=== PATIENT | female | born 1985 | race Caucasian/White ===

== ENCOUNTER 2016-11-06 13:00 | Inpatient (IN) | payer MEDICAID ==
--- NOTE | ~2016-11-06 | PA ---
Unit #: [id number] #: [id number] Patient: BONIFACIO ORTIZ [id number] [facility] [address] [place] [address] [id number] I MR#: [id number] NAME: BONIFACIO ORTIZ ROOM: P208 Age: 30 Sex: F Admission Date: 11/06/2016 : 1985 Date of Assessment: 11/07/2016 Attending Physician: Tito Zavala M.D. Admitting Physician: Tito Zavala M.D. Primary Care Physician: Primary Care Physician No PSYCHIATRIC ASSESSMENT IDENTIFYING INFORMATION The patient is a 30-year-old white female admitted with methamphetamine induced psychosis. INFORMANT(S) Patient. RELIABILITY Fair. CHIEF COMPLAINT None given. HISTORY OF PRESENT ILLNESS The patient is a 30-year-old white female admitted from [facility] in [place] with a methamphetamine induced psychosis. The patient reports that she has been hearing voices saying help me and was fearful that cars were melting on the bridge. The patient's father dropped her off at [facility] after the patient had tried to jump out of the car as a way to kill herself. The patient has been using in addition to methamphetamine heroin by means of intravenous administration. She has a history of one previous chemical dependence treatment on an outpatient basis. She denies current suicidal/homicidal ideation. She does report that she has been prescribed Effexor but her chart does not seem to confirm this. PAST PSYCHIATRIC HISTORY As above. FAMILY HISTORY Noncontributory. SOCIAL HISTORY The patient is presently homeless and unemployed. She reports she completed high school. She is not presently employed. MEDICAL HISTORY Noncontributory. MEDICATION HISTORY None. ALLERGIES Unit #: [id number] #: [id number] Patient: BONIFACIO ORTIZ None. MENTAL STATUS EXAM At this time, reveals the patient to be a well-developed, well-nourished white female appearing her stated age. She is in no apparent physical distress at the time of the examination. She is awake, alert, oriented in all spheres. Her mood is euthymic. Her affect congruent. Speech is generally relevant and coherent. There are no gross deficits in memory or cognition noted. Intelligence is judged to be in the average range based on fund of knowledge. The patient is cooperative throughout the interview. She is currently denying suicidal or homicidal ideation and at this point denies any psychotic symptoms. Her judgement and insight appear to be reasonably intact. ASSETS AND LIABILITIES Patient's assets to be assessed. Liabilities, ongoing substance use. ADMITTING DIAGNOSES 1. Methamphetamine use disorder with intoxication and delusions. 2. Psychotic disorder, unspecified. 3. Opioid use disorder. 4. Hepatitis C. PSYCHIATRIC PLAN/TREATMENT GOALS The patient remains hospitalized for safety and stabilization. We will watch for any signs of opioid withdrawal and the patient has been started p.r.n. Zydis for psychosis. Already her psychotic symptoms seemed to have cleared but were very much in evidence yesterday as the patient required multiple p.r.n.'s and seclusion and restraint. ESTIMATED LENGTH OF STAY Three to four days with follow up to take place through the auspices of community mental health resources in the [facility] [place]. Dictated by... Tito Zavala M.D. MAX/valentine TD: 11/07/2016 15:08 JOB #: [id number] PSYCHIATRIC ASSESSMENT Page 1 of 1 X Tito Zavala MD X PSYCHIATRIC ASSESSMENT
--- NOTE | ~2016-11-06 | HP ---
Unit #: [id number] #: [id number] Patient: BESSY ORTIZ [id number] [facility] [address] [place] [address] [id number] I MR#: [id number] NAME: BESSY ORTIZ ROOM: P208 Age: 30 Sex: F Admission Date: 11/06/2016 : 1985 Attending Physician: Tito Zavala M.D. Admitting Physician: Tito Zavala M.D. Primary Care Physician: Primary Care Physician No HISTORY AND PHYSICAL REVISED REPORT HISTORY OF PRESENT ILLNESS Bessy is a 30 year old admitted with drug induced psychosis. At the time of her initial admissions she was in no shape to answer questions appropriately nor did she consent to physical exam. Forty eight hours after her admission I was able to sit down speak with her and she did allow me to examine her. PAST MEDICAL HISTORY Nothing significant. PAST SURGICAL HISTORY Nothing reported. ALLERGIES No known drug allergies. SOCIAL HISTORY Smokes one pack per day. Denies alcohol. Admits to illicit substance abuse to include methamphetamine. FAMILY HISTORY Medically noncontributory. REVIEW OF SYSTEMS CONSTITUTIONAL: No fever or chills. HEENT: Denies any sore throat, ear pain or runny nose. CARDIOVASCULAR: Denies chest pain, irregular heart rhythm or palpitations. CHEST: Denies shortness of breath or cough. No hemoptysis. GASTROINTESTINAL: Denies nausea, vomiting, diarrhea or chronic constipation. ENDOCRINE: Denies history of increased thirst or urination. No recent significant weight loss or gain. GENITOURINARY: Denies dysuria, frequency, or hematuria. SKIN: Denies any rashes. HEMATOLOGIC: Denies history of increased bleeding or bruising. MUSCULOSKELETAL: Denies any hot, swollen joints. No generalized muscle pain. NEUROLOGIC: Denies problems with vision or speech. No frequent, severe headaches. No numbness, tingling or weakness in any extremities. Denies loss of bladder or bowel control. Unit #: [id number] #: [id number] Patient: BESSY ORTIZ CURRENT MEDICATIONS 1. Milk of Magnesia p.r.n. 2. Maalox p.r.n. 3. Tylenol p.r.n. 4. Zyprexa Zydis 10 mg q 8 hours p.r.n. 5. Nicotine patch 14 mg q day PHYSICAL EXAMINATION GENERAL: Alert, no apparent distress, in no apparent distress. VITAL SIGNS: Blood pressure 100/52, heart rate 80, respirations 16, temperature 98.6. WEIGHT: 130 pounds. HEIGHT: 5 foot 2 inches. SKIN: Warm and dry without rash or lesion. HEENT: Normocephalic. TMs not viewed. Oral and nasal passages clear. Conjunctivae clear. Pupils equal, round and reactive to light and accommodation. Extraocular movements intact. NECK: Supple without lymphadenopathy or thyromegaly. HEART: Regular rate and rhythm without murmur. LUNGS: Clear. ABDOMEN: Soft, nontender. : Not done. EXTREMITIES: No evidence of cyanosis, clubbing or edema. Moves all extremities without focal deficit. NEUROLOGICAL: Grossly within normal limits. Cranial Nerves: II: Visual ellis are intact. III, IV AND : Extraocular movements are intact. Pupils are equal, round and reactive to light. V: Facial sensation is grossly normal. VII: Facial movements and expression are normal. VIII: Auditory acuity grossly intact. IX, X: Uvula is midline. Phonation is normal. XI: Patient shrugs shoulders and turns head normally. XII: Tongue protrudes in the midline. Sensory and Motor Function: Sensory and motor sensation is grossly normal. Motor: moves all extremities well. Coordination: Gait is normal. Deep Tendon Reflexes: Intact. IMPRESSION Psychiatric admission RECOMMENDATIONS PSYCHIATRIC: Per psychiatrist. MEDICAL: I see no contraindications to participating in facility's activities. MEDICAL PROGNOSIS Good. MEDICAL CONDITION Stable. Dictated by... Emily Medina P.A.-C. for Sarika Gustafson M.D. Unit #: [id number] #: [id number] Patient: BESSY ORTIZ ROLAN/yanelis TD: 11/11/2016 07:11 JOB #: [id number] Socheko/invision Please Delete HISTORY AND PHYSICAL Page 1 of 1 X Emily Medina HISTORY AND PHYSICAL
--- NOTE | ~2016-11-06 | PN ---
Unit #: [id number] #: [id number] Patient: BONIFACIO ORTIZ [id number] [facility] [address] [place] [address] [id number] I MR#: [id number] NAME: BONIFACIO ORTIZ ROOM: P208 Age: 30 Sex: F Admission Date: 11/06/2016 : 1985 Attending Physician: Tito Zavala M.D. Admitting Physician: Tito Zavala M.D. Primary Care Physician: Primary Care Physician Viviana VALENZUELA PROGRESS NOTES DATE 11/08/2016 DISCUSSION The patient is reporting no auditory hallucinations or delusional thinking today. Once again this physician has discussed with the patient the fact that her symptoms were methamphetamine induced. I have encouraged her to increase her participation within the therapeutic milieu. Dictated by... Tito Zavala M.D. CB/valentine TD: 11/08/2016 12:49 JOB #: [id number] [facility] PROGRESS NOTES Page 1 of 1 X Tito Zavala MD PROGRESS NOTE
--- NOTE | ~2016-11-06 | PN ---
Unit #: [id number] #: [id number] Patient: BONIFACIO ORTIZ [id number] [facility] [address] [place] [address] [id number] I MR#: [id number] NAME: BONIFACIO ORTIZ ROOM: P208 Age: 30 Sex: F Admission Date: 11/06/2016 : 1985 Attending Physician: Tito Zavala M.D. Admitting Physician: Tito Zavala M.D. Primary Care Physician: Primary Care Physician Viviana VALENZUELA PROGRESS NOTES DATE 11/09/2016 DISCUSSION The patient exhibits no psychotic symptoms today and is in pleasant spirits. She is agreeable to signing into the hospital for voluntary treatment and should she sustain progress, discharge will take place tomorrow. Dictated by... Tito Zavala M.D. CB/to TD: 11/09/2016 15:21 JOB #: [id number] [facility] PROGRESS NOTES Page 1 of 1 X Tito Zavala MD PROGRESS NOTE
--- NOTE | ~2016-11-06 | CO ---
Unit #: [id number] #: [id number] Patient: BESSY ORTIZ [id number] [place] [address] [id number] I MR#: [id number] NAME: BESSY ORTIZ ROOM: P208 Age: 30 Sex: F Admission Date: 11/06/2016 : 1985 Attending Physician: Tito Zavala M.D. Primary Care Physician: Primary Care Physician No Consultation Date: 11/08/2016 CONSULTATION REPORT HISTORY OF PRESENT ILLNESS Bessy is a 30-year-old female. She has complaints of abscess on her left labia that she first noticed yesterday. Two years ago, she had something similar and had to have it lanced. Yesterday, she started noticing that she had some bloody drainage. It also was having a foul odor. She has been trying to squeeze the area to get rid of the drainage and this has helped some especially when she is in the shower; however, she continues to have some swelling and drainage there. She has no other complaints. PHYSICAL EXAMINATION CARDIAC: Regular rate and rhythm. No murmurs, gallops, or rubs. RESPIRATORY: Clear to auscultation bilaterally. SKIN: Swelling and erythema of the left labia. ASSESSMENT AND PLAN Left labial abscess. Abscess is draining at this time and I do not see any reason for lancing and currently there is no clear area to ave. We will begin Keflex 500 mg p.o. t.i.d. for 10 days. The patient was encouraged to continue to compress the left labia and try to drain some of that abscess. She will notify if abscess stops draining or if symptoms worsen. Dictated by... Lloyd Burks/dante TD: 11/09/2016 01:22 JOB #: [id number] CONSULTATION REPORT Page 1 of 1 X DOMINGO LOVE APRN X CONSULTATION REPORT
--- NOTE | ~2016-11-06 | DS ---
Unit #: [id number] #: [id number] Patient: BONIFACIO ORTZI [id number] [facility] [address] [place] [address] [id number] I MR#: [id number] NAME: BONIFACIO ORTIZ ROOM: P208 Age: 30 Sex: F Admission Date: 11/06/2016 : 1985 Discharge Date: Attending Physician: Tito Zavala M.D. Primary Care Physician: Primary Care Physician No DISCHARGE SUMMARY REASON FOR ADMISSION The patient is a 30-year-old white female, admitted to the [facility] with recurrent abuse of methamphetamine and psychosis. HOSPITAL COURSE The patient was admitted to the [address] [place] [address] unit and placed on suicide precautions. She required multiple p.r.n.'s initially on admission and given her degree of severe psychosis and paranoia, actually requiring both the Zydis and p.r.n. Geodon on that date of admission. The patient's psychotic symptoms resolved rapidly and she was active and participated within the therapeutic milieu. She did request reinitiation of Effexor XR at the time of discharge, also the patient was prescribed a 10-day course of Keflex for a vaginal cyst. Discharge was ordered as per the patient's request on 11/10/2016. FINAL DIAGNOSES Methamphetamine use disorder; dysthymic disorder; psychotic disorder, unspecified, resolved. DISPOSITION ON DISCHARGE The patient is discharged on the following medications: Effexor XR 150 mg daily for depression. FOLLOWUP Follow up through the auspices of community mental health resources in the [place], [place] area. PROGNOSIS The patient's prognosis is considered fair. Dictated by... Tito Zavala M.D. CB/dante TD: 11/10/2016 13:31 JOB #: [id number] Unit #: [id number] #: [id number] Patient: BONIFACIO ORTIZ DISCHARGE SUMMARY Page 1 of 1 X Tito Zavala MD X DISCHARGE SUMMARY
[2016-11-07 09:38] LABS: BASOPHIL# 0.1 X10e3 (0-0.3); BASOPHIL% 0.8 % (0-2.5); EOSINOPHIL# 0.2 X10e3 (0-0.7); EOSINOPHIL% 1.8 % (0.0-7.0); HEMATOCRIT 42.6 % (35.0-45.0); HEMOGLOBIN 13.9 gm/dL (12.0-16.0); LYMPHOCYTE# 2.6 X10e3 (1.0-3.5); LYMPHOCYTE% 21.6 % (17.0-45.0); MEAN CELL VOLUME 93.1 FL (83-96); MEAN CORPUSCULAR HEMOGLOBIN 30.3 PG (28-34); MEAN CORPUSCULAR HGB CONC 32.5 g/dL (30-36); MEAN PLATELET VOLUME 7.3 FL (6.5-11.5); MONOCYTE# 0.9 X10e3 (0-1.0); MONOCYTE% 7.3 % (3.0-12.0); NEUTROPHIL# 8.1 X10e3 (1.5-7.1); NEUTROPHIL% 68.5 % (40-75); PLATELET COUNT 407 X10e3 (140-420); RED BLOOD COUNT 4.58 X10e (3.90-5.30); RED CELL DISTRIBUTION WIDTH 13.6 % (11.0-15.5); WHITE BLOOD COUNT 11.9 X10e3 (4.0-10.5)
[2016-11-07 09:44] LABS: DIFF IND NO
[2016-11-07 10:01] LABS: URINE APPEARANCE TURBID; URINE BILIRUBIN NEG (NEG); URINE BLOOD 1+ (NEG); URINE COLOR DK YELLOW; URINE GLUCOSE NEG (NEG); URINE KETONE 1+ (NEG); URINE LEUKOCYTE ESTERASE NEG (NEG); URINE NITRATE POS (NEG); URINE PROTEIN NEG (NEG); URINE UROBILINOGEN 0.2 MG/DL (NEG)
[2016-11-07 10:12] LABS: URBCS1 AUWI 0-2 /[HPF] (0-2); URINE BACTERIA AUWI 4+ (NEGATIVE); URINE SQUAMOUS EPITHELIAL CELL NONE SEEN /[HPF]
[2016-11-07 10:31] LABS: AMPHETAMINE POS (NEG); BARBITURATES NEG (NEG); BENZODIAZEPINES NEG (NEG); COCAINE NEG (NEG); MARIJUANA NEG (NEG); OPIATES POS (NEG); TRICYCLIC ANTIDEPRESSANTS NEG (NEG); U METHADONE NEG (NEG)
[2016-11-07 10:35] LABS: ALBUMIN SERUM 3.8 g/dL (3.5-5.0); BILIRUBIN,TOTAL 0.8 mg/dL (0.2-2.0); CALCIUM SERUM 9.3 mg/dL (8.4-10.2); CREATININE SERUM 0.6 mg/dL (0.6-1.4); GLOM FILT RATE Estimated 120.6 mL/min (>60); POTASSIUM 4.4 mmol/L (3.5-5.1); PROTEIN TOTAL SERUM 7.5 g/dL (6.0-8.3)
== END 2016-11-10 15:01 | disposition home or self-care (01) | DRG 897 ==
LOC: P2S 14:51
PROVIDERS: Specialist
PROC: HZ2ZZZZ Detoxification Services for Substance Abuse Treatment (ICD-10-PCS; principal; 2016-11-07)
DX: F15.250 Other stimulant dependence with stimulant-induced psychotic disorder with delusions (principal); F11.20 Opioid dependence, uncomplicated; N76.4 Abscess of vulva; F15.229 Other stimulant dependence with intoxication, unspecified; B19.20 Unspecified viral hepatitis C without hepatic coma; F34.1 Dysthymic disorder; F29 Unspecified psychosis not due to a substance or known physiological condition; F17.210 Nicotine dependence, cigarettes, uncomplicated
CPT/HCPCS: 80053; 80307; 81003; 84703; 85025; J3486

== ENCOUNTER 2016-11-13 11:00 | Inpatient (IN) | payer MEDICAID ==
--- NOTE | ~2016-11-13 | PN ---
Unit #: [id number] #: [id number] Patient: BONIFACIO ORTIZ [id number] [facility] [address] [place] [address] [id number] I MR#: [id number] NAME: BONIFACIO ORTIZ ROOM: P110 Age: 30 Sex: F Admission Date: 11/13/2016 : 1985 Attending Physician: Alpesh Carcamo M.D. Admitting Physician: Alpesh Carcamo M.D. Primary Care Physician: Primary Care Physician Viviana HERNANDEZ NOTES DATE November 17, 2016 DISCUSSION Ms. Ortiz is a 30-year-old white female, with mood disorder, who was seen today and chart was reviewed and the case was discussed with the staff. She has been anxious, withdrawn, and rather seclusive to herself. Meanwhile, she has been cooperative with the treatment recommendations and she has been taking the medications and tolerating them fairly well with no reported side effects. MENTAL STATUS EXAMINATION Young white female, who was casually dressed with fair personal hygiene and appears to be in no acute distress or discomfort. She was awake and alert on interaction with intact orientation. Her mood was anxious with a congruent affect. The patient denies any suicidal or homicidal ideations. Her insight and judgment remain slightly impaired. TREATMENT PLAN 1. We will continue her on her current medications and treatment protocol, and will monitor her response, and make further adjustments as needed. 2. We will continue to followup. Dictated by... Robbin Zimmerman/noble TD: 11/17/2016 11:29 JOB #: [id number] Unit #: [id number] #: [id number] Patient: BONIFACIO ORTIZ MARIBELMAITE DAVID NOTES Page 1 of 1 X Alpesh Carcamo MD PROGRESS NOTE
--- NOTE | ~2016-11-13 | HP ---
Unit #: [id number] #: [id number] Patient: BESSY ORTIZ [id number] [facility] [address] [place] [address] [id number] I MR#: [id number] NAME: BESSY ORTIZ ROOM: [facility] Age: 30 Sex: F Admission Date: 11/13/2016 : 1985 Attending Physician: Alpesh Carcamo M.D. Admitting Physician: Alpesh Carcamo M.D. Primary Care Physician: Primary Care Physician No HISTORY AND PHYSICAL Bessy is a 30-year-old female admitted on 11/13/2016 to [facility]. She has multiple previous admissions to this facility. Most recently she was admitted on 11/06/2016. I have reviewed the history and physical from that admission and there are no changes. Dictated by... Lloyd Burks/valentine TD: 11/14/2016 17:42 JOB #: [id number] HISTORY AND PHYSICAL Page 1 of 1 X DOMINGO LOVE APRN HISTORY AND PHYSICAL
--- NOTE | ~2016-11-13 | PN ---
Unit #: [id number] #: [id number] Patient: BONIFACIO ORTIZ [id number] [facility] [address] [place] [address] [id number] MR#: [id number] NAME: BONIFACIO ORTIZ ROOM: P110 Age: 30 Sex: F Admission Date: 11/13/2016 : 1985 Attending Physician: Alpesh Carcamo M.D. Admitting Physician: Alpesh Carcamo M.D. Primary Care Physician: Primary Care Physician Viviana VALENZUELA PROGRESS NOTES DATE 11/16/2016 DISCUSSION Ms. Ortiz is a 30-year-old white female who was seen today and chart was reviewed and case was discussed with the staff. She remains anxious and rather in an elated mood with pressured speech and flight of ideas and inappropriate smiles and laughter. However, she has not shown any agitation or aggression. MENTAL STATUS EXAMINATION Young white female who was casually dressed with fair personal hygiene, appears to be in no acute distress or discomfort. She was awake and alert on interaction with intact orientation. Her mood was anxious with congruent affect. She denies any suicidal or homicidal ideations. Her insight and judgement remains slightly impaired. TREATMENT PLAN 1. We will continue her on her current medications and treatment protocol. We will monitor her response to the medication and make further adjustments as needed. 2. We will continue to follow up. Dictated by... Robbin Zimmerman/yanelis TD: 11/16/2016 23:02 JOB #: [id number] Unit #: [id number] #: [id number] Patient: BONIFACIO ORTIZ PROGRESS NOTES Page 1 of 1 X Alpesh Carcamo MD PROGRESS NOTE
--- NOTE | ~2016-11-13 | DS ---
Unit #: [id number] #: [id number] [facility]: [facility]TIZ [id number] [facility] [address] [place] [address] [id number] I MR#: [id number] NAME: BONIFACIO ORTIZ ROOM: P110 Age: 30 Sex: F Admission Date: 11/13/2016 : 1985 Discharge Date: 11/19/2016 Attending Physician: Alpesh Carcamo M.D. Primary Care Physician: Primary Care Physician No DISCHARGE SUMMARY IDENTIFYING DATA Ms. Ortiz is a 30-year-old single white female who is a resident of [place], [place] and was brought to the hospital and was transferred from emergency room. HISTORY OF PRESENT ILLNESS Please see initial psychiatric evaluation. PAST PSYCHIATRIC HISTORY Please see initial psychiatric evaluation. PAST MEDICAL HISTORY Please see initial psychiatric evaluation. HOSPITAL COURSE The patient was admitted to the adult psychiatric unit at [facility] and was oriented to the hospital. Routine p.r.n. medications were initiated and she was started back on her home medications. However, she was seen to be quite disorganized, manic, inappropriate smiles and laughter and flight of ideas and being out of touch with reality and exhibiting some flirtatious behavior and was difficult to carry on any meaningful conversation and as such Effexor and Lamictal were maintained and Risperdal was added and she was closely monitored. Patient was taking medications regularly and was tolerating them fairly well and was able to show a decent therapeutic response with improvement in brianda and psychosis. No agitation or aggression was noticed and she was denying any thoughts of wanting to hurt herself or hurt anyone else and as such was not seen to be a danger to self or anyone else and therefore it was decided that she will be discharged home. Will continue treatment on outpatient basis. DISCHARGE DIAGNOSES PSYCHIATRIC: 1. Bipolar disorder, most recent episode manic with psychosis. 2. Methamphetamine dependence, moderate. MEDICAL: Hepatitis C. STRESSORS: Moderate psychosocial stressors. DISCHARGE MEDICATIONS 1. Effexor XR 150 mg in the morning for depression. Unit #: [id number] #: [id number] Patient: BONIFACIO ORTIZ 2. Lamictal 25 mg b.i.d. for bipolar. 3. Risperdal 1 mg at bedtime for bipolar. CONDITION AT DISCHARGE Stable. PROGNOSIS Fair. Dictated by... Robbin Zimmerman/valentine TD: 11/19/2016 20:25 JOB #: [id number] DISCHARGE SUMMARY Page 1 of 1 X Alpesh Carcamo MD X DISCHARGE SUMMARY
--- NOTE | ~2016-11-13 | PN ---
Unit #: [id number] #: [id number] Patient: BONIFACIO SANTILLAN [id number] [facility] [address] [place] [address] [id number] I MR#: [id number] NAME: BONIFACIO SANTILLAN ROOM: P110 Age: 30 Sex: F Admission Date: 11/13/2016 : 1985 Attending Physician: Alpesh Carcamo M.D. Admitting Physician: Alpesh Carcamo M.D. Primary Care Physician: Primary Care Physician Viviana HERNANDEZ NOTES DATE OF SERVICE 11/13/2016 DISCUSSION Ms. Santillan is a 30-year-old white female who was seen today. Chart was reviewed and case was discussed with the staff. She appears to be doing better and has been calmer and appears to be showing improvement in her brianda and psychosis. She has been, however, taking medications and tolerating them fairly well with no reported side effects. MENTAL STATUS EXAMINATION Young white female who is casually dressed with fair personal hygiene, appears to be in no acute distress or discomfort. She was awake and alert with intact orientation. Her mood is anxious with congruent affect. She denies any suicidal or homicidal ideations. Her insight and judgment remain slightly impaired. TREATMENT PLAN 1. We will continue her on her current medications and treatment protocol. We will monitor her response to medications, and we will make further adjustments as needed. 2. We will continue to follow up. Dictated by... Alpesh Carcamo M.D. IAA/bzg TD: 11/18/2016 13:00 JOB #: [id number] [facility] PROGRESS NOTES Page 1 of 1 X Alpesh Carcamo MD PROGRESS NOTE
--- NOTE | ~2016-11-13 | PA ---
Unit #: [id number] #: [id number] Patient: BONIFACIO SANTILLAN [id number] [facility] [address] [place] [address] [id number] I MR#: [id number] NAME: BONIFACIO SANTILLAN ROOM: P182 Age: 30 Sex: F Admission Date: 11/13/2016 : 1985 Date of Assessment: Attending Physician: Alpesh Carcamo M.D. Admitting Physician: Alpesh Carcamo M.D. Primary Care Physician: Primary Care Physician No PSYCHIATRIC ASSESSMENT DATE OF SERVICE 11/14/2016. IDENTIFYING DATA Ms. Santillan is a 30-year-old single white female, who is a resident of [place], [place], and was brought to the hospital as a transfer from Emergency Room. CHIEF COMPLAINT "Visual hallucinations seeing people chasing me, which is making me feel suicidal and plan to overdose on meth." HISTORY OF PRESENT ILLNESS Ms. Santillan is a 30-year-old white female, who was brought to the hospital by her sister as the patient attended intensive outpatient program today and reported paranoid thoughts and visual hallucinations seeing people chasing her, which is making her suicidal plan to overdose on meth and the patient's sister brought her in and "I was not ready the other day, I'm ready for help today, I want to be better for myself and I have to worry about myself. I'm struggling with addiction and I'm worrying about something happening to and about my family. I have anxiety and depression. I'm feeling paranoid, using methamphetamine, smoking, and snorting, last use was 24 hours ago and I've been using meth since I was 8 years. I've been using one to twice a week and no other drug use, feeling depressed since was puberty and try to make it to therapist and few more anxious since I relapsed. I'm a borderline panic attack person, but I got overwhelmed in setting groups and situation. I'm not on my medication. I get anxious whenever I don't relapse and I making my medication, then I do well. I relapsed 1-1/2 days ago, my longest was 6 months back in 2016. I don't feel stable enough to work right now. It is not professional to show up to work intoxicated. I'm not slept in a while after watching the news 2 days ago and started praying all night for my family." The patient reports that "after I left this boy's house, a lot of cars are melting on the bridge, my family is in danger. I keep hearing him and tell me, help me and what to do for the safety incursion." The patient presented to [facility] with suicidal ideations and psychosis and apparently was seen to have suicidal ideation and the patient's father dropped her off and the patient stated that she tried to jump out of the car on the way here to kill herself and was seen to be a significant danger to self and as such, recommendation for inpatient level of care for safety and stabilization was made and the patient was transferred to us. Unit #: [id number] #: [id number] Patient: BONIFACIO SANTILLAN SUBSTANCE ABUSE HISTORY The patient reports history of experimentation with opioids and alcohol in the past, but methamphetamine has been her drug of choice. She reports that she has done IV heroin in the past with methamphetamine, but has not used any IV heroin in a week, but methamphetamine she has been smoking and snorting it on daily basis. PAST PSYCHIATRIC HISTORY The patient reports history of chemical dependency treatment at the [facility], [facility], and other facilities and currently she is not active in any treatment program. Review of the medical records indicate that she is supposed to be on Effexor and Lamictal, but is not taking any antipsychotic medication and as such, has been decompensating. PAST MEDICAL HISTORY Hepatitis C and asthma. ALLERGIES No known medication allergies. PERSONAL AND SOCIAL HISTORY A 30-year-old white female, who reports that she is single, unemployed, and lives at home with her sister and niece and has fairly decent social support system. MENTAL STATUS EXAMINATION Young white female, who was casually dressed with fair personal hygiene, appears to be in no acute distress or discomfort. She was awake and alert on interaction with intact orientation. Her mood was anxious and depressed with a congruent affect. Her speech was slow and restricted in content. Her thought processes were disorganized with some looseness of associations and flight of ideas. Her insight and judgment remain significantly impaired. DIAGNOSTIC IMPRESSION Psychiatric: Bipolar disorder, most recent episode depressed, recurrent, moderate, with psychosis; methamphetamine dependence, moderate. Medical: Hepatitis C. Stressors: Moderate psychosocial stressors. TREATMENT PLAN 1. The patient has presented with history of mood disorder and psychosis and has been decompensating and will need inpatient hospitalization for detoxification, safety, and stabilization. We will start her back on her home medications. We will adjust the medications and monitor response. 2. Supportive therapy was provided to the patient. 3. Safe, structured, and nourishing environment will be provided. ESTIMATED LENGTH OF STAY 5 to 7 days. ABILITY TO HELP SELF Limited. WILLINGNESS TO HELP SELF The patient appears to be willing to help self. STRENGTHS 1. Communicative. Unit #: [id number] #: [id number] Patient: BONIFACIO SANTILLAN 2. Cooperative. PROBLEMS 1. Chronic dysphoric symptoms. 2. Chronic chemical dependency. 3. Poor social support system. DISCHARGE CRITERIA This will be contingent upon the patient's ability to show resolution of her depression and psychosis and her ability to stay safe to herself, particularly after discharge from the hospital. Dictated by... Robbin Zimmerman/dante TD: 11/14/2016 07:05 JOB #: [id number] PSYCHIATRIC ASSESSMENT Page 1 of 1 X Alpesh Carcamo MD X PSYCHIATRIC ASSESSMENT
[2016-11-14 10:01] LABS: BASOPHIL# 0.1 X10e3 (0-0.3); BASOPHIL% 0.9 % (0-2.5); EOSINOPHIL# 0.2 X10e3 (0-0.7); EOSINOPHIL% 1.9 % (0.0-7.0); HEMATOCRIT 37.8 % (35.0-45.0); HEMOGLOBIN 12.4 gm/dL (12.0-16.0); LYMPHOCYTE# 3.1 X10e3 (1.0-3.5); LYMPHOCYTE% 36.9 % (17.0-45.0); MEAN CELL VOLUME 93.6 FL (83-96); MEAN CORPUSCULAR HEMOGLOBIN 30.6 PG (28-34); MEAN CORPUSCULAR HGB CONC 32.7 g/dL (30-36); MEAN PLATELET VOLUME 7.4 FL (6.5-11.5); MONOCYTE% 11.6 % (3.0-12.0); NEUTROPHIL# 4.1 X10e3 (1.5-7.1); NEUTROPHIL% 48.7 % (40-75); PLATELET COUNT 344 X10e3 (140-420); RED BLOOD COUNT 4.04 X10e (3.90-5.30); RED CELL DISTRIBUTION WIDTH 13.8 % (11.0-15.5); WHITE BLOOD COUNT 8.3 X10e3 (4.0-10.5)
[2016-11-14 10:02] LABS: DIFF IND NO
[2016-11-14 10:15] LABS: ALBUMIN SERUM 3.6 g/dL (3.5-5.0); BILIRUBIN,TOTAL 0.9 mg/dL (0.2-2.0); CALCIUM SERUM 9.1 mg/dL (8.4-10.2); CREATININE SERUM 0.7 mg/dL (0.6-1.4); GLOM FILT RATE Estimated 114.6 mL/min (>60); POTASSIUM 4.7 mmol/L (3.5-5.1); PROTEIN TOTAL SERUM 6.9 g/dL (6.0-8.3)
[2016-11-15 12:53] LABS: URINE APPEARANCE CLOUDY; URINE BILIRUBIN NEG (NEG); URINE BLOOD NEG (NEG); URINE COLOR YELLOW; URINE GLUCOSE NORM (NORM); URINE KETONE NEG (NEG); URINE LEUKOCYTE ESTERASE NEG (NEG); URINE NITRATE POS (NEG); URINE PROTEIN NEG (NEG); URINE UROBILINOGEN NORM (NORM)
[2016-11-15 12:54] LABS: URINE SOURCE VOID
[2016-11-15 13:10] LABS: AMPHETAMINE POS (NEG); BARBITURATES NEG (NEG); BENZODIAZEPINES NEG (NEG); COCAINE NEG (NEG); MARIJUANA NEG (NEG); OPIATES NEG (NEG); TRICYCLIC ANTIDEPRESSANTS NEG (NEG); U METHADONE NEG (NEG)
[2016-11-15 13:19] LABS: URBCS1 AUWI 0-2 /[HPF] (0-2)
[2016-11-15 13:20] LABS: U HYALINE CASTS AUWI 0-2 /[LPF]; URINE AMORPHOUS SEDIMENT AMORP URATES; URINE BACTERIA AUWI 3+ (NEGATIVE); URINE CRYSTALS CALCIUM OXALATE /[HPF]; URINE GRANULAR CAST 0-2 /[HPF]; URINE MUCUS PRESENT; URINE SQUAMOUS EPITHELIAL CELL FEW /[HPF]; URINE YEAST PRESENT
== END 2016-11-19 09:21 | disposition home or self-care (01) | DRG 885 ==
LOC: P1E 20:18 → P1S 20:18
PROVIDERS: Psychiatry & Neurology Psychiatry
DX: F31.2 Bipolar disorder, current episode manic severe with psychotic features (principal); F31.5 Bipolar disorder, current episode depressed, severe, with psychotic features; F15.20 Other stimulant dependence, uncomplicated; B19.20 Unspecified viral hepatitis C without hepatic coma; J45.909 Unspecified asthma, uncomplicated
CPT/HCPCS: 80053; 80307; 81003; 85025

== ENCOUNTER 2017-01-25 23:00 | Inpatient (IN) | payer MEDICAID ==
[~2017-01-25] VITALS: Ht 157.5 cm; Wt 59.0 kg
--- NOTE | ~2017-01-25 | PN ---
Unit #: [id number] #: [id number] Patient: BONIFACIO ORTIZ [id number] [facility] [address] [place] [address] [id number] I MR#: [id number] NAME: BONIFACIO ORTIZ ROOM: [facility] Age: 31 Sex: F Admission Date: 01/26/2017 : 1985 Attending Physician: Alpesh Carcamo M.D. Admitting Physician: Alpesh Carcamo M.D. Primary Care Physician: Primary Care Physician Viviana HERNANDEZ NOTES DATE February 01, 2017 DISCUSSION Ms. Ortiz is a 31-year-old white female, who was seen today and chart was reviewed and the case was discussed with the staff. The patient has been anxious, withdrawn, and rather seclusive to herself. Meanwhile, she has been cooperative with the treatment recommendations, and has been taking the medications and tolerating them fairly well with no reported side effects. MENTAL STATUS EXAMINATION Young white female, who was casually dressed with fair personal hygiene and appears to be in no acute distress or discomfort. She was awake and alert with intact orientation. Her mood was anxious with a congruent affect. The patient denies any suicidal or homicidal ideations. Her insight and judgment remain slightly impaired. TREATMENT PLAN 1. We will continue her on her current medications and treatment protocol, and will monitor her response to the medications, and make further adjustments as needed. 2. We will continue to followup. Dictated by... Robbin Zimmerman/noble TD: 02/02/2017 11:34 JOB #: [id number] Unit #: [id number] #: [id number] Patient: BONIFACIO ORTIZ MARIBELMAITE DAVID NOTES Page 1 of 1 X Alpesh Carcamo MD PROGRESS NOTE
--- NOTE | ~2017-01-25 | PN ---
Unit #: [id number] #: [id number] Patient: BONIFACIO ORTIZ [id number] [facility] [address] [place] [address] [id number] I MR#: [id number] NAME: BONIFACIO ORTIZ ROOM: [facility] Age: 31 Sex: F Admission Date: 01/26/2017 : 1985 Attending Physician: Alpesh Carcamo M.D. Admitting Physician: Alpesh Carcamo M.D. Primary Care Physician: Primary Care Physician Viviana VALENZUELA PROGRESS NOTES DATE 01/30/2017 DISCUSSION Ms. Ortiz is a 31-year-old white female who was seen today and chart was reviewed and case was discussed with the staff. She has been anxious, withdrawn and rather seclusive to herself. Meanwhile, she has been cooperative with treatment recommendations and has been taking medications and tolerating them fairly well. MENTAL STATUS EXAMINATION Young white female who was casually dressed with fair personal hygiene and appears to be in no acute distress or discomfort. She was awake and alert on interaction with intact orientation. Her mood was anxious with congruent affect. Her speech is slow and goal-directed. She denies any suicidal or homicidal ideations. Her insight and judgement remains slightly impaired. TREATMENT PLAN 1. Will continue on current medications and treatment protocol. Will monitor her response to medications and make further adjustments as needed. 2. Will continue to follow up. Dictated by... Robbin Zimmerman/valentine TD: 01/30/2017 20:02 JOB #: [id number] Unit #: [id number] #: [id number] Patient: BONIFACIO ORTIZ PROGRESS NOTES Page 1 of 1 X Alpesh Carcamo MD PROGRESS NOTE
--- NOTE | ~2017-01-25 | HP ---
Unit #: [id number] #: [id number] Patient: BONIFACIO ORTIZ [id number] [place] [address] [id number] I MR#: [id number] NAME: BONIFACIO ORTIZ ROOM: [facility] Age: 31 Sex: F Admission Date: 01/26/2017 : 1985 Attending Physician: Alpesh Carcamo M.D. Admitting Physician: Alpesh Carcamo M.D. Primary Care Physician: No Primary Care Physician HISTORY AND PHYSICAL HISTORY OF PRESENT ILLNESS Patient is a 31-year-old female admitted to [facility] on 01/26/2017 for suicidal ideation. PAST MEDICAL HISTORY Hepatitis C. PAST SURGICAL HISTORY None noted. SOCIAL HISTORY She is unemployed and homeless. Smokes one pack of cigarettes daily and uses methamphetamines on a daily basis. FAMILY MEDICAL HISTORY Noncontributory. ALLERGIES No known drug allergies. CURRENT MEDICATIONS Patient is not on any home medications. REVIEW OF SYSTEMS CONSTITUTIONAL: No fever or chills. HEENT: Denies any sore throat, ear pain or runny nose. CARDIOVASCULAR: Denies chest pain, irregular heart rhythm or palpitations. CHEST: Denies shortness of breath or cough. No hemoptysis. GASTROINTESTINAL: Denies nausea, vomiting, diarrhea or chronic constipation. ENDOCRINE: Denies history of increased thirst or urination. No recent significant weight loss or gain. GENITOURINARY: Denies dysuria, frequency, or hematuria. SKIN: Denies any rashes. HEMATOLOGIC: Denies history of increased bleeding or bruising. MUSCULOSKELETAL: Denies any hot, swollen joints. No generalized muscle pain. NEUROLOGIC: Denies problems with vision or speech. No frequent, severe headaches. No numbness, tingling or weakness in any extremities. Denies loss of bladder or bowel control. PHYSICAL EXAMINATION VITAL SIGNS: Temperature 98.1, heart rate 88, respirations 18, blood Unit #: [id number] #: [id number] Patient: BONIFACIO ORTIZ pressure 110/76, height is 5 feet, 2 inches, weight is 130 pounds. GENERAL: She is awake, alert, oriented in no acute distress. SKIN: Warm and dry without rash or lesion. HEENT: Normocephalic. TMs not viewed. Oral and nasal passages clear. Conjunctivae clear. PERRLA. EOMs intact. NECK: Supple without lymphadenopathy or thyromegaly. HEART: Regular rate and rhythm without murmur. LUNGS: Clear. ABDOMEN: Soft, nontender. : Not done. EXTREMITIES: No evidence of cyanosis, clubbing or edema. Moves all without focal deficit. NEUROLOGICAL: Grossly within normal limits. Cranial Nerves: II: Visual ellis are intact. III, IV AND : Extraocular movements are intact. Pupils are equal, round and reactive to light. V: Facial sensation is grossly normal. VII: Facial movements and expression are normal. VIII: Auditory acuity grossly intact. IX, X: Uvula is midline. Phonation is normal. XI: Patient shrugs shoulders and turns head normally. XII: Tongue protrudes in the midline. Sensory and Motor Function: Sensory and motor sensation is grossly normal. Motor: moves all extremities well. IMPRESSION 1. Psychiatric admission. 2. Hepatitis C. RECOMMENDATIONS PSYCHIATRIC: Per psychiatrist. MEDICAL: No contraindications to participating in facility activities. MEDICAL PROGNOSIS Good. MEDICAL CONDITION Stable. Dictated by... Madina Borden A.P.R.N. for Robbin Saab/renetta TD: 01/27/2017 06:48 JOB #: [id number] HISTORY AND PHYSICAL Page 1 of 1 X MADINA BORDEN APRN HISTORY AND PHYSICAL
--- NOTE | ~2017-01-25 | PN ---
Unit #: [id number] #: [id number] Patient: BONIFACIO SANTILLAN [id number] [facility] [address] [place] [address] [id number] I MR#: [id number] NAME: BONIFACIO SANTILLAN ROOM: [facility] Age: 31 Sex: F Admission Date: 01/26/2017 : 1985 Attending Physician: Alpesh Carcamo M.D. Admitting Physician: Alpesh Carcamo M.D. Primary Care Physician: Primary Care Physician Viviana HERNANDEZ NOTES DATE 01/28/2017 DISCUSSION Ms. Santillan is a 31-year-old white female who was seen today and chart was reviewed and case was discussed with the staff. She has been anxious, withdrawn and rather seclusive to herself. Meanwhile, she has been cooperative with treatment recommendations and has been taking medications and tolerating them fairly well with no reported side effects. MENTAL STATUS EXAMINATION Young white female who was casually dressed with fair personal hygiene and appears to be in no acute distress or discomfort. She was awake and alert with intact orientation. Her mood was anxious with congruent affect. Her speech is slow and goal-directed. She denies any suicidal or homicidal ideations. He insight and judgement remains slightly impaired. TREATMENT PLAN 1. Will continue on current medications and treatment protocol. Will monitor her response and make further adjustments as needed. 2. Will continue to follow up. Dictated by... Alpesh Carcamo M.D. IAA/valentine TD: 01/28/2017 15:33 JOB #: [id number] [facility] PROGRESS NOTES Page 1 of 1 X Alpesh Carcamo MD PROGRESS NOTE
--- NOTE | ~2017-01-25 | DS ---
Unit #: [id number] #: [id number] Patient: [facility] [id number] [facility] [address] [place] [address] [id number] I MR#: [id number] NAME: BONIFACIO SANTILLAN ROOM: 86 Age: 31 Sex: F Admission Date: 01/26/2017 : 1985 Discharge Date: 02/02/2017 Attending Physician: Alpesh Carcamo M.D. Primary Care Physician: Primary Care Physician No DISCHARGE SUMMARY IDENTIFICATION DATA Ms. Santillan is a 31-year-old white female who is a resident of [place], [place], and was self-referred to the hospital on a voluntary basis. DISCHARGE DIAGNOSES PSYCHIATRIC: Bipolar disorder, most recent episode, depressed, recurrent, moderate, without psychotic features. Opiate dependence, moderate, in acute withdrawal. Methamphetamine dependence, moderate. MEDICAL: Hepatitis C. STRESSORS: Mild psychosocial stressors. HISTORY OF PRESENT ILLNESS Same as in initial psychiatric evaluation. PAST PSYCHIATRIC HISTORY Same as in initial psychiatric evaluation. PAST MEDICAL HISTORY Same as in initial psychiatric evaluation. HOSPITAL COURSE The patient was admitted to the adult psychiatric and chemical dependence unit at [facility] oli Daniels and was oriented to the hospital environment. Routine p.r.n. medications were initiated, and she was started back on her home medications. Medications were adjusted, and opioid detox protocol was initiated, and Seroquel and Lamictal were also initiated to help with the bipolar, and she was closely monitored. She was taking the medications regularly and was tolerating them fairly well and was able to show decent therapeutic response with improvement in depression and anxiety and was able to come out of the detox without any complications and is willing to continue treatment on outpatient basis. As such it was decided that she will be discharged home. We will continue treatment on outpatient basis. DISCHARGE MEDICATIONS 1. Seroquel 100 mg at bedtime for bipolar. 2. Lamictal 25 mg at bedtime for bipolar. CONDITION AT DISCHARGE Stable. PROGNOSIS Fair. Unit #: [id number] #: [id number] Patient: BONIFACIO SANTILLAN Dictated by... Alpesh Carcamo M.D. IAA/bzg TD: 02/05/2017 07:57 JOB #: [id number] DISCHARGE SUMMARY Page 1 of 1 X Alpesh Carcamo MD DISCHARGE SUMMARY
--- NOTE | ~2017-01-25 | PN ---
Unit #: [id number] #: [id number] Patient: BONIFACIO ORTIZ [id number] [facility] [address] [place] [address] [id number] I MR#: [id number] NAME: BONIFACIO ORTIZ ROOM: 86 Age: 31 Sex: F Admission Date: 01/26/2017 : 1985 Attending Physician: Alpesh Carcamo M.D. Admitting Physician: Alpesh Carcamo M.D. Primary Care Physician: Primary Care Physician Viviana VALENZUELA PROGRESS NOTES DATE OF SERVICE: 01/31/2017 SUBJECTIVE Ms. Ortiz is a 31-year-old white female, who was seen today and chart was reviewed and case was discussed with the staff. She appears to be doing better and appears to be coming out of the detox, has a body language and often it has been positive. She has been compliant with treatment recommendations and has been taking medications and tolerating them fairly well. MENTAL STATUS EXAMINATION Young white female, who was casually dressed with fair personal hygiene, appears to be in no acute distress or discomfort. She was awake and alert on interaction with intact orientation. Her mood was anxious with a congruent affect. The patient denies any suicidal or homicidal ideation. Her insight and judgment remain slightly impaired. TREATMENT AND PLAN 1. We will continue on her current medications and treatment protocol. We will monitor her response to medications and make further adjustments as needed. 2. We will continue to follow up. Dictated by... Robbin Zimmerman/avisl TD: 02/03/2017 00:28 JOB #: [id number] [facility] PROGRESS NOTES Page 1 of 1 X Alpesh Carcamo MD PROGRESS NOTE
--- NOTE | ~2017-01-25 | PN ---
Unit #: [id number] #: [id number] Patient: BONIFACIO SANTILLAN [id number] [facility] [address] [place] [address] [id number] I MR#: [id number] NAME: BONIFACIO SANTILLAN ROOM: [facility] Age: 31 Sex: F Admission Date: 01/26/2017 : 1985 Attending Physician: Alpesh Carcamo M.D. Admitting Physician: Alpesh Carcamo M.D. Primary Care Physician: Primary Care Physician Viviana HERNANDEZ NOTES DATE 01/27/2017 DISCUSSION Ms. Santillan is a 31-year-old white female with substance abuse and mood disorder who was seen today and chart was reviewed and case was discussed with the staff. She remains anxious, withdrawn, depressed and rather seclusive to herself. Meanwhile, she has been cooperative with treatment recommendations and has been taking medications and tolerating them fairly well with no reported side effects. MENTAL STATUS EXAMINATION Young white female who was casually dressed with fair personal hygiene and appears to be in no acute distress or discomfort. She was awake and alert on interactions with intact orientation. Her mood was anxious with congruent affect. She denies any suicidal or homicidal ideation. Her insight and judgement remains slightly impaired. TREATMENT PLAN 1. Will continue on current medications and treatment protocol. Will monitor her response to the medications and make further adjustments as needed. 2. Will continue to follow up. Dictated by... Alpesh Carcamo M.D. IAA/vlaentine TD: 01/27/2017 20:43 JOB #: [id number] Unit #: [id number] #: [id number] Patient: BONIFACIO SANTILLAN PROGRESS NOTES Page 1 of 1 X Alpesh Carcamo MD PROGRESS NOTE
--- NOTE | ~2017-01-25 | PN ---
Unit #: [id number] #: [id number] Patient: BONIFACIO ORTIZ [id number] [facility] [address] [place] [address] [id number] I MR#: [id number] NAME: BONIFACIO ORTIZ ROOM: [facility] Age: 31 Sex: F Admission Date: 01/26/2017 : 1985 Attending Physician: Alpesh Carcamo M.D. Admitting Physician: Alpesh Carcamo M.D. Primary Care Physician: Primary Care Physician Viviana HERNANDEZ NOTES DATE OF SERVICE 01/29/2017 DISCUSSION Ms. Ortiz is a 31-year-old white female who was seen today. Chart was reviewed and case was discussed with the staff. She has been anxious, withdrawn, depressed, and rather seclusive to herself and has been expressing reporting some persistent depressive symptoms. Meanwhile, she has been taking the medications and tolerating them fairly well with no reported side effects. MENTAL STATUS EXAMINATION Young white female who is casually dressed with fair personal hygiene, appears to be in no acute distress or discomfort. The patient was awake and alert with intact orientation. Her mood is anxious with a congruent affect. Speech is slow and goal-directed. She denies any suicidal or homicidal ideations. Her insight and judgment remain slightly impaired. TREATMENT PLAN 1. We will continue her on her current medications and treatment protocol. We will monitor her response to the medications and make further adjustments as needed. 2. We will continue to follow up. Dictated by... Robbin Zimmerman/ernestinag TD: 01/29/2017 11:59 JOB #: [id number] Unit #: [id number] #: [id number] Patient: BONIFACIO ORTIZ PROGRESS NOTES Page 1 of 1 X Alpesh Carcamo MD PROGRESS NOTE
--- NOTE | ~2017-01-25 | PA ---
Unit #: [id number] #: [id number] Patient: BONIFACIO SANTILLAN [id number] [facility] [place] [address] [id number] MR#: [id number] NAME: BONIFACIO SANTILLAN ROOM: P186 Age: 31 Sex: F Admission Date: 01/26/2017 : 1985 Date of Assessment: Attending Physician: Alpesh Carcamo M.D. Admitting Physician: Alpesh Carcamo M.D. Primary Care Physician: Primary Care Physician No PSYCHIATRIC ASSESSMENT DATE OF SERVICE 01/26/2017. IDENTIFYING DATA Ms. Santillan is a 31-year-old, single, white female who is a resident of [place], [place] and was known to us from previous encounter, and was self-referred to the hospital on voluntary basis. CHIEF COMPLAINT "I'm suicidal." HISTORY OF PRESENT ILLNESS Ms. Santillan is a 31-year-old white female with history of substance abuse and mood disorder, who came to the hospital was seen to be anxious, withdrawn, unkempt, disheveled, with blisters on the feet and has been walking in the street, and was seen to be distress and discomfort, and reports increasing depression and that she could probably walk up to someone and say the wrong thing, they would probably kill her because "everyone hates me." She does report increasing depression, anxiety, agitation, irritability, feelings of hopelessness and helplessness, and suicidal ideations with intent and plan and as such, recommendation for inpatient level of care for safety and stabilization was made. The patient was stepped up to the inpatient unit. SUBSTANCE ABUSE HISTORY The patient reports history of alcohol and opioids, and amphetamine abuse, and currently opioids and amphetamine has been her drug of choice. She reports that she has been using IV heroin and has been smoking methamphetamine. PAST PSYCHIATRIC HISTORY The patient has had history of inpatient chemical dependency treatment at [facility] and review of the medical records indicate that she has been diagnosed and treated for mood disorder, but has been noncompliant with medication and as such, has been decompensating. PAST MEDICAL HISTORY Hepatitis C. ALLERGIES No known medication allergies. CURRENT MEDICATIONS Unit #: [id number] #: [id number] Patient: BONIFACIO SANTILLAN None. PERSONAL AND SOCIAL HISTORY A 31-year-old white female who reports that she is single, unemployed, and essentially homeless and has poor social support system. MENTAL STATUS EXAMINATION Young white female who was casually dressed with fair personal hygiene, appears to be in no acute distress or discomfort. She was awake and alert on interaction with intact orientation to time, place, and person. Her mood was anxious and depressed with a congruent affect. Her speech was slow and restricted in content. Her thought processes were disorganized with some looseness of associations and flight of ideas and suicidal ideations. Her insight and judgment remain significantly impaired. DIAGNOSTIC IMPRESSION Psychiatric: Bipolar disorder, most recent episode depressed, recurrent, moderate, without psychotic features; opioid dependence, moderate and acute withdrawals; methamphetamine dependence, moderate. Medical: Hepatitis C. Stressors: Moderate psychosocial stressors. TREATMENT PLAN 1. The patient has presented with history of substance abuse and mood disorder, and has been decompensating and will need inpatient hospitalization for safety and stabilization. We will start her back on her home medications. We will adjust the medications and monitor response. 2. Supportive therapy was provided to the patient. 3. Safe, structured, and nourishing environment will be provided. ESTIMATED LENGTH OF STAY 4 to 5 days. ABILITY TO HELP SELF Limited. WILLINGNESS TO HELP SELF The patient appears to be willing to help self. STRENGTHS 1. Communicative. 2. Cooperative. PROBLEMS 1. Chronic dysphoric symptoms. 2. Chronic chemical dependency. 3. Poor social support system. DISCHARGE CRITERIA This will be contingent upon the patient's ability to show resolution of her depression and anxiety and her ability to stay safe to herself, particularly after discharge from the hospital. Dictated by... Alpesh Carcamo M.D. [facility]/avisl Unit #: [id number] #: [id number] Patient: BONIFACIO SANTILLAN TD: 01/26/2017 14:44 JOB #: [id number] PSYCHIATRIC ASSESSMENT Page 1 of 1 X Alpesh Carcamo MD PSYCHIATRIC ASSESSMENT
[2017-01-27 12:35] LABS: BASOPHIL# 0.1 X10e3 (0-0.3); EOSINOPHIL# 0.3 X10e3 (0-0.7); EOSINOPHIL% 4.1 % (0.0-7.0); HEMATOCRIT 39.2 % (35.0-45.0); HEMOGLOBIN 12.5 gm/dL (12.0-16.0); LYMPHOCYTE# 2.5 X10e3 (1.0-3.5); LYMPHOCYTE% 40.1 % (17.0-45.0); MEAN CELL VOLUME 94.9 FL (83-96); MEAN CORPUSCULAR HEMOGLOBIN 30.3 PG (28-34); MEAN CORPUSCULAR HGB CONC 31.9 g/dL (30-36); MEAN PLATELET VOLUME 7.5 FL (6.5-11.5); MONOCYTE# 0.8 X10e3 (0-1.0); MONOCYTE% 12.2 % (3.0-12.0); NEUTROPHIL# 2.6 X10e3 (1.5-7.1); NEUTROPHIL% 42.6 % (40-75); PLATELET COUNT 265 X10e3 (140-420); RED BLOOD COUNT 4.13 X10e (3.90-5.30); RED CELL DISTRIBUTION WIDTH 15.2 % (11.0-15.5); WHITE BLOOD COUNT 6.2 X10e3 (4.0-10.5)
[2017-01-27 12:46] LABS: DIFF IND NO
[2017-01-27 14:07] LABS: BILIRUBIN,TOTAL 0.2 mg/dL (0.2-2.0); CALCIUM SERUM 8.6 mg/dL (8.4-10.2); CREATININE SERUM 0.5 mg/dL (0.6-1.4); GLOM FILT RATE Estimated 127.2 mL/min (>60); POTASSIUM 4.3 mmol/L (3.5-5.1); PROTEIN TOTAL SERUM 6.1 g/dL (6.0-8.3)
[2017-01-29 09:56] LABS: URINE APPEARANCE CLEAR; URINE BILIRUBIN NEG (NEG); URINE BLOOD NEG (NEG); URINE COLOR YELLOW; URINE GLUCOSE NEG (NEG); URINE KETONE NEG (NEG); URINE LEUKOCYTE ESTERASE NEG (NEG); URINE NITRATE NEG (NEG); URINE PH 6.5 (5-8); URINE PROTEIN NEG (NEG); URINE SPECIFIC GRAVITY 1.016 (1.003-1.035); URINE UROBILINOGEN 0.2 MG/DL (NEG)
[2017-01-29 10:21] LABS: AMPHETAMINE NEG (NEG); BARBITURATES NEG (NEG); BENZODIAZEPINES NEG (NEG); COCAINE NEG (NEG); MARIJUANA NEG (NEG); OPIATES NEG (NEG); TRICYCLIC ANTIDEPRESSANTS NEG (NEG); U METHADONE NEG (NEG)
== END 2017-02-02 14:00 | DRG 885 ==
LOC: P1E 01-26 05:09
PROVIDERS: Psychiatry & Neurology Psychiatry
DX: F31.32 Bipolar disorder, current episode depressed, moderate (principal); F15.20 Other stimulant dependence, uncomplicated; F11.23 Opioid dependence with withdrawal; F17.200 Nicotine dependence, unspecified, uncomplicated; B19.20 Unspecified viral hepatitis C without hepatic coma
CPT/HCPCS: 80053; 80307; 81003; 84703; 85025; 86592